=== PATIENT | female | born 1960 | race Caucasian/White ===

== ENCOUNTER 2017-04-17 16:14 | Emergency (ER) | payer BC, MEDICARE ==
[~2017-04-17] VITALS: Ht 165.1 cm; Wt 50.0 kg
[2017-04-17 19:09] VITALS: BP 127/83
== END 2017-04-17 19:11 | disposition home or self-care (01) ==
LOC: ER 16:22
DX: H54.7 Unspecified visual loss (principal); H53.2 Diplopia; Z88.5 Allergy status to narcotic agent
CPT/HCPCS: 70450; 93005; 99284